=== PATIENT | male | born 1950 | race Caucasian/White ===

== ENCOUNTER 2016-11-14 20:40 | Inpatient (IN) | payer OTHER ==
[~2016-11-14] VITALS: Ht 200.7 cm; Wt 145.0 kg
[2016-11-14 21:29] LABS: Urine Bilirubin Negative (Negative); Urine Blood Negative /uL (Negative); Urine Color Yellow (Yellow); Urine Glucose Normal (Normal); Urine Hyaline Cast FEW /lpf (0 - 2); Urine Ketone Negative (Negative); Urine Mucus FEW (None Seen); Urine Nitrite Negative (Negative); Urine RBC <1 /hpf (0 - 3); Urine Urobilinogen Normal (Negative); Urine pH 5.5 (5.0-8.0)
[2016-11-14 21:48] LABS: Basophils # (auto) 0 uL; Basophils % (auto) 0.2 % (0.0-2.0); Eosinophils # (auto) 0.1 uL; Eosinophils % (auto) 0.9 % (0.0-7.0); Hematocrit 44.5 % (41.0-53.0); Hemoglobin 14.8 g/dL (13.5-17.5); Lymphocytes # (auto) 0.9 uL; Lymphocytes % (auto) 13.2 % (10.0-50.0); Mean Corpuscular Hemoglobin 28.9 pg (28.0-32.0); Mean Corpuscular Hgb Conc. 33.1 g/dL (32.0-36.0); Mean Corpuscular Volume 87.3 fL (80.0-100.0); Mean Platelet Volume 8.2 fL (7.4-10.4); Monocytes % (auto) 15.4 % (0.0-12.0); Neutrophils # (auto) 4.8 uL; Neutrophils % (auto) 70.3 % (37.0-80.0); Platelet Count (auto) 226 10^3/uL (140-450); Red Cell Distribution Width 15.2 % (11.6-16.0); White Blood Cell 6.8 10^3/uL (4.4-10.8)
[2016-11-14 22:16] LABS: Albumin 3.8 g/dL (3.4-5.0); Alkaline Phosphatase 86 U/L (45-117); Anion Gap 8 (5-15); Aspartate Aminotransferase 23 U/L (15-37); BUN/Creatinine Ratio 19.3; Bilirubin, Total 0.4 mg/dL (0.2-1.0); Blood Urea Nitrogen 23 mg/dL (7-18); Calcium 8.2 mg/dL (8.5-10.1); Carbon Dioxide 20 mmol/L (21-32); Chloride 112 mmol/L (98-107); GFR African American 79 mL/min; GFR Non-African American 65 mL/min; Glucose 108 mg/dL (74-106); Magnesium 2.2 mg/dL (1.6-2.6); Potassium 3.8 mmol/L (3.5-5.1); Sodium 140 mmol/L (136-145); Total Protein 7.7 g/dL (6.4-8.2)
[2016-11-15] MEDS ORDERED: MORPHINE SULFATE 4 MG/ML SYRG IV ONE (02:30)
[2016-11-15] MEDS ORDERED: ONDANSETRON HCL 4 MG/2 ML VIAL IV ONE (02:30)
[2016-11-15] MEDS ORDERED: POTA8TAB2 PO (08:56)
[2016-11-15] MEDS ORDERED: FURO20TA3 PO (08:56)
[2016-11-15] MEDS ORDERED: METO-291 PO (08:56)
[2016-11-15] MEDS ORDERED: ENAL20TA70 PO (08:56)
[2016-11-15] MEDS ORDERED: DIGO0.2570 PO (08:56)
[2016-11-15] MEDS ORDERED: WARF5TAB PO (08:56)
[2016-11-15] MEDS ORDERED: PRAV20TA3 PO (08:56)
[2016-11-15] MEDS ORDERED: TEMAZEPAM 15 MG CAP PO PRN (10:45)
[2016-11-15] MEDS ORDERED: METOPROLOL TARTRATE 50 MG TAB PO ONE ×2 (10:45→11:00)
[2016-11-15] MEDS ORDERED: NITROGLYCERIN 0.4 MG SL TAB SL PRN (10:45)
[2016-11-15] MEDS ORDERED: DIGOXIN 0.25 MG TAB PO ONE ×2 (10:45→11:00)
[2016-11-15] MEDS ORDERED: DOCUSATE SOD 100 MG CAP PO PRN (10:45)
[2016-11-15] MEDS ORDERED: ACETAMINOPHEN 325 MG TAB PO PRN (10:45)
[2016-11-15] MEDS ORDERED: cefTRIAXone 1GM/50ML D5W 50 ML IV ONE (10:45)
[2016-11-15] MEDS ORDERED: ENALAPRIL MALEATE 10 MG TAB PO ONE ×2 (10:45→11:00)
[2016-11-15] MEDS ORDERED: MORPHINE SULF INJ 2 MG/ML SYRINGE 1ML IV PRN (10:45)
[2016-11-15] MEDS ORDERED: FUROSEMIDE 20 MG TAB PO ONE ×2 (10:45→11:00)
[2016-11-15] MEDS ORDERED: HYDROcodone-ACET 5/325MG TAB PO PRN (10:45)
[2016-11-15] MEDS ORDERED: POTASSIUM CHLORIDE 8 MEQ TAB PO ONE ×2 (10:45→11:00)
[2016-11-15] MEDS ORDERED: MULTIPLE VITAMIN TAB PO ONE (11:00)
[2016-11-15] MEDS: MORPHINE SULF INJ 2 MG/ML SYRINGE 1ML IV PRN ×2 (12:19→21:54)
[2016-11-15] MEDS: ONDANSETRON HCL 4 MG/2 ML VIAL IV PRN ×2 (12:20→21:54)
[2016-11-15] MEDS: SODIUM CHLOR 0.9% PF (SALINE LOCK) 10ML VIAL IV SCH ×2 (14:00→21:51)
[2016-11-15 16:53] VITALS: BP 111/64
[2016-11-15] MEDS: metroNIDAZOLE 500MG/100ML 100 ML IV SCH ×2 (17:53→21:51)
[2016-11-15 20:00] VITALS: BP 100/59
[2016-11-15 21:30] VITALS: BP 100/59
[2016-11-15 21:46] VITALS: BP 111/64
[2016-11-15] MEDS: METOPROLOL TARTRATE 50 MG TAB PO SCH (21:52)
[2016-11-15] MEDS ORDERED: PRAVASTATIN SODIUM 20 MG TAB PO SCH (22:00)
[2016-11-16] VITALS (7 sets, daily range): BP systolic 91–109; BP diastolic 55–63
[2016-11-16 05:20] LABS: Hematocrit 42.2 % (41.0-53.0); Hemoglobin 13.7 g/dL (13.5-17.5); Mean Corpuscular Hemoglobin 28.8 pg (28.0-32.0); Mean Corpuscular Hgb Conc. 32.6 g/dL (32.0-36.0); Mean Corpuscular Volume 88.4 fL (80.0-100.0); Mean Platelet Volume 8.1 fL (7.4-10.4); Platelet Count (auto) 213 10^3/uL (140-450); Red Cell Distribution Width 14.8 % (11.6-16.0); White Blood Cell 4.8 10^3/uL (4.4-10.8)
[2016-11-16 05:41] LABS: Albumin 3.3 g/dL (3.4-5.0); BUN/Creatinine Ratio 12.4; Calcium 7.8 mg/dL (8.5-10.1); Potassium 3.6 mmol/L (3.5-5.1)
[2016-11-16] MEDS: metroNIDAZOLE 500MG/100ML 100 ML IV SCH ×2 (05:41→14:42)
[2016-11-16] MEDS: SODIUM CHLOR 0.9% PF (SALINE LOCK) 10ML VIAL IV SCH ×2 (05:41→14:42)
[2016-11-16 05:44] LABS: Bilirubin, Total 0.5 mg/dL (0.2-1.0); Total Protein 6.7 g/dL (6.4-8.2)
[2016-11-16 06:17] LABS: Metamyelocytes % 0; Myelocytes % 0; Promyelocytes % 0; Reactive Lymphocytes 0
[2016-11-16 06:58] LABS: Large Platelets FEW; Platelet Estimate Adequa; RBC Morphology Normal
[2016-11-16] MEDS ORDERED: cefTRIAXone 1GM/50ML D5W 50 ML IV SCH (09:00)
[2016-11-16] MEDS: ONDANSETRON HCL 4 MG/2 ML VIAL IV PRN (09:25)
[2016-11-16] MEDS: MORPHINE SULF INJ 2 MG/ML SYRINGE 1ML IV PRN (09:25)
[2016-11-16] MEDS: METOPROLOL TARTRATE 50 MG TAB PO SCH (09:27)
[2016-11-16] MEDS ORDERED: FUROSEMIDE 20 MG TAB PO SCH (10:00)
[2016-11-16] MEDS ORDERED: ENALAPRIL MALEATE 10 MG TAB PO SCH (10:00)
[2016-11-16] MEDS ORDERED: POTASSIUM CHLORIDE 8 MEQ TAB PO SCH (10:00)
[2016-11-16] MEDS ORDERED: DIGOXIN 0.25 MG TAB PO SCH (10:00)
[2016-11-16] MEDS ORDERED: MULTIPLE VITAMIN TAB PO SCH (10:00)
== END 2016-11-16 20:00 | disposition home or self-care (01) | DRG 394 ==
LOC: ER 20:44 → TELE 20:45 → TELE-E-ADS 11-15 12:51 → TELE-WESTW 11-15 15:52
PROVIDERS: ADMIT Internal Medicine; ATTEND Internal Medicine
DX: K42.9 Umbilical hernia without obstruction or gangrene (principal); I13.0 Hypertensive heart and chronic kidney disease with heart failure and stage 1 through stage 4 chronic kidney disease, or unspecified chronic kidney disease; I48.92 Unspecified atrial flutter; J98.11 Atelectasis; K40.90 Unilateral inguinal hernia, without obstruction or gangrene, not specified as recurrent; K43.2 Incisional hernia without obstruction or gangrene; I50.9 Heart failure, unspecified; E83.51 Hypocalcemia; N18.3 Chronic kidney disease, stage 3 (moderate); I34.1 Nonrheumatic mitral (valve) prolapse; E11.22 Type 2 diabetes mellitus with diabetic chronic kidney disease; E66.01 Morbid (severe) obesity due to excess calories; G47.30 Sleep apnea, unspecified; I45.10 Unspecified right bundle-branch block; I48.2 Chronic atrial fibrillation; Z68.36 Body mass index [BMI] 36.0-36.9, adult; Z79.01 Long term (current) use of anticoagulants; Z95.2 Presence of prosthetic heart valve
CPT/HCPCS: 36415; 71010; 74176; 80053; 81001; 83690; 83735; 84484; 85007; 85025; 85027; 87040; 87493; 93005; 93306; 94660; 94761; 96365; 96375; J0696; J2405; J3490